=== PATIENT | female | born 1980 | race Caucasian/White ===

== ENCOUNTER 2024-01-03 11:40 | Emergency (ER) | payer BC, OTHER ==
--- NOTE | 2024-01-03 11:55 | ED ---
General Adult HPI - General Chief complaint: Chest Pain Stated complaint: chest pain Time Seen by Provider: 01/03/24 11:47 Source: patient, EMS, RN notes reviewed, old records reviewed Mode of arrival: EMS Limitations: no limitations - History of Present Illness Initial comments: 43-year-old female history of type 1 diabetes presenting for evaluation of lightheadedness, near syncope and chest discomfort. Symptoms began just prior to arrival. Patient was seated at work when she began feeling lightheaded like she was going to pass out. This was associated with nausea and diaphoresis. She had some central chest tightness which was initially left-sided and then became right-sided, this was a brief episode.. She denies chest pain at the time my evaluation. She has no prior history of CAD. - Related Data Home Medications Medication Instructions Recorded Confirmed INSULIN ASPART (NovoLOG) [NovoLOG] See Protocol SQ AC-TID 09/27/17 09/27/17 Ibuprofen [Motrin] 400 mg PO Q6HR PRN 09/27/17 09/27/17 Insulin Glargine [Lantus] 29 unit SQ HS 09/27/17 09/27/17 Levothyroxine Sodium [Synthroid] 175 mcg PO DAILY 09/27/17 09/27/17 Allergies Allergy/AdvReac Type Severity Reaction Status Date / Time nitrofurantoin Allergy Nausea & Verified 01/03/24 14:13 [From Macrobid] Vomiting Review of Systems ROS Statement: Those systems with pertinent positive or pertinent negative responses have been documented in the HPI. ROS Other: All systems not noted in ROS Statement are negative. Past Medical History Past Medical History: Diabetes Mellitus, Thyroid Disorder Additional Past Medical History / Comment(s): Type 1 DM, slight heart murmur History of Any Multi-Drug Resistant Organisms: None Reported Past Surgical History: Adenoidectomy, Cholecystectomy, Ear Surgery, Tonsillectomy, Tubal Ligation Past Psychological History: No Psychological Hx Reported Smoking Status: Never smoker Past Alcohol Use History: None Reported Past Drug Use History: None Reported General Exam Limitations: no limitations General appearance: alert, in no apparent distress Head exam: Present: atraumatic, normocephalic Eye exam: Present: normal appearance, PERRL ENT exam: Present: normal exam Neck exam: Present: normal inspection. Absent: tenderness, meningismus Respiratory exam: Present: normal lung sounds bilaterally. Absent: respiratory distress, wheezes Cardiovascular Exam: Present: regular rate, normal rhythm GI/Abdominal exam: Present: soft. Absent: distended, tenderness, guarding Extremities exam: Present: pedal edema Neurological exam: Present: alert, oriented X3, CN II-XII intact. Absent: motor sensory deficit Psychiatric exam: Present: normal affect, normal mood Skin exam: Present: warm, dry, intact Course Vital Signs 01/03/24 11:41 Temperature 97.6 F Pulse Rate 83 Respiratory 18 Rate Blood Pressure 134/80 O2 Sat by Pulse 97 Oximetry Medical Decision Making - Medical Decision Making Was pt. sent in by a medical professional or institution (, PA, LAND USE PLANNER, urgent care, hospital, or half-way...) When possible be specific @ -No Did you speak to anyone other than the patient for history (EMS, parent, family, police, friend...)? What history was obtained from this source @ -No Did you review nursing and triage notes (agree or disagree)? Why? @ -I reviewed and agree with nursing and triage notes Were old charts reviewed (outside hosp., previous admission, EMS record, old EKG, old radiological studies, urgent care reports/EKG's, half-way records)? Report findings @ -No old charts were reviewed Differential Diagnosis (chest pain, altered mental status, abdominal pain women, abdominal pain men, vaginal bleeding, weakness, fever, dyspnea, syncope, headache, dizziness, GI bleed, back pain, seizure, CVA, palpatations, mental health, musculoskeletal)? @ -Differential Syncope: Valvular disease, hypertrophic cardiomyopathy, pulmonary embolism, tamponade, tachycardia, bradycardia, ID, hypovolemia, hemorrhage, dissection, anemia, intracranial hemorrhage, seizure, hypoglycemia, carbon monoxide poisoning, this is not meant to be an all-inclusive list. EKG interpreted by me (3pts min.). @EKG: Sinus rhythm rate of 86, SD interval 153, QRS duration 98, QTc [address] segment elevation. X-rays interpreted by me (1pt min.). @ -[Chest x-ray negative for acute cardiopulmonary findings CT interpreted by me (1pt min.). @ -CT brain negative for intracranial hemorrhage or mass effect U/S interpreted by me (1pt. min.). @ -None done What testing was considered but not performed or refused? (CT, X-rays, U/S, labs)? Why? @ -None What meds were considered but not given or refused? Why? @ -None Did you discuss the management of the patient with other professionals (professionals i.e. , PA, LAND USE PLANNER, lab, RT, psych nurse, drug abuse social worker, production control manager, teacher, space operations officer, binder caser)? Give summary @ -No Was smoking cessation discussed for >3mins.? @ -No Was critical care preformed (if so, how long)? @ -No Were there social determinants of health that impacted care today? How? (Homelessness, low income, unemployed, alcoholism, drug addiction, transportation, low edu. Level, literacy, decrease access to med. care, penitentiary, rehab)? @ -No Was there de-escalation of care discussed even if they declined (Discuss DNR or withdrawal of care, Hospice)? DNR status @ -No What co-morbidities impacted this encounter? (DM, HTN, Smoking, COPD, CAD, Cancer, CVA, ARF, Chemo, Hep., AIDS, mental health diagnosis, sleep apnea, morbid obesity)? @ -Type 1 diabetes Was patient admitted / discharged? Hospital course, mention meds given and route, prescriptions, significant lab abnormalities, going to OR and other pertinent info. @ -43-year-old female with near syncopal episode, brief episode of chest dis comfort. EKG sinus rhythm without ST segment changes. Patient has normal laboratory testing with the exception of anemia, hemoglobin 8.6 with no old for comparison. She denies rectal bleeding, denies melena, denies heavy menstrual cycles. She states she has never been told she was anemic in the past. Workup is otherwise unremarkable. I suspect this is the cause of her symptoms. 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 Undiagnosed new problem with uncertain prognosis? @ -No Drug Therapy requiring intensive monitoring for toxicity (Heparin, Nitro, Insulin, Cardizem)? @ -No Were any procedures done? @ -No Diagnosis/symptom? @ -Anemia, near syncope Acute, or Chronic, or Acute on Chronic? @ -Acute Uncomplicated (without systemic symptoms) or Complicated (systemic symptoms)? @ -Default Side effects of treatment? @ -No Exacerbation, Progression, or Severe Exacerbation? @ -No Poses a threat to life or bodily function? How? (Chest pain, USA, ID, pneumonia, PE, COPD, DKA, ARF, appy, cholecystitis, CVA, Diverticulitis, Homicidal, Suicidal, threat to staff... and all critical care pts) @ -Low risk at this time - Lab Data Result diagrams: 01/03/24 11:55 01/03/24 11:55 Lab Results 01/03/24 01/03/24 01/03/24 Range/Units 11:55 11:55 11:55 WBC 8.2 (3.8-10.6) k/uL RBC 4.42 (3.80-5.40) m/uL Hgb 8.6 L (11.4-16.0) gm/dL Hct 28.6 L (34.0-46.0) % MCV 64.7 L (80.0-100.0) fL MCH 19.5 L (25.0-35.0) pg MCHC 30.2 L (31.0-37.0) g/dL RDW 16.6 H (11.5-15.5) % Plt Count 226 (150-450) k/uL MPV 8.0 Neutrophils % 69 % Lymphocytes % 22 % Monocytes % 4 % Eosinophils % 2 % Basophils % 0 % Neutrophils # 5.7 (1.3-7.7) k/uL Lymphocytes # 1.8 (1.0-4.8) k/uL Monocytes # 0.4 (0-1.0) k/uL Eosinophils # 0.2 (0-0.7) k/uL Basophils # 0.0 (0-0.2) k/uL Hypochromasia Marked Anisocytosis Slight Microcytosis Marked PT 10.1 (10.0-12.5) sec INR 0.9 (<1.2) APTT 21.9 L (22.0-30.0) sec Sodium 138 (137-145) mmol/L Potassium 4.0 (3.5-5.1) mmol/L Chloride 110 H (98-107) mmol/L Carbon Dioxide 22 (22-30) mmol/L Anion Gap 6 mmol/L BUN 9 (7-17) mg/dL Creatinine 0.50 L (0.52-1.04) mg/dL Est GFR (CKD-EPI)AfAm >90 (>60 ml/min/1.73 sqM) Est GFR (CKD-EPI)NonAf >90 (>60 ml/min/1.73 sqM) Glucose 156 H (74-99) mg/dL Calcium 8.7 (8.4-10.2) mg/dL Magnesium 1.8 (1.6-2.3) mg/dL Total Bilirubin 0.7 (0.2-1.3) mg/dL AST 18 (14-36) U/L ALT 14 (4-34) U/L Alkaline Phosphatase 81 (38-126) U/L Troponin I (0.000-0.034) ng/mL NT-Pro-B Natriuret Pep 90 pg/mL Total Protein 6.9 (6.3-8.2) g/dL Albumin 3.8 (3.5-5.0) g/dL Influenza Type A (PCR) (Not Detectd) Influenza Type B (PCR) (Not Detectd) RSV (PCR) (Not Detectd) SARS-CoV-2 (PCR) (Not Detectd) 01/03/24 01/03/24 Range/Units 11:55 13:15 WBC (3.8-10.6) k/uL RBC (3.80-5.40) m/uL Hgb (11.4-16.0) gm/dL Hct (34.0-46.0) % MCV (80.0-100.0) fL MCH (25.0-35.0) pg MCHC (31.0-37.0) g/dL RDW (11.5-15.5) % Plt Count (150-450) k/uL MPV Neutrophils % % Lymphocytes % % Monocytes % % Eosinophils % % Basophils % % Neutrophils # (1.3-7.7) k/uL Lymphocytes # (1.0-4.8) k/uL Monocytes # (0-1.0) k/uL Eosinophils # (0-0.7) k/uL Basophils # (0-0.2) k/uL Hypochromasia Anisocytosis Microcytosis PT (10.0-12.5) sec INR (<1.2) APTT (22.0-30.0) sec Sodium (137-145) mmol/L Potassium (3.5-5.1) mmol/L Chloride (98-107) mmol/L Carbon Dioxide (22-30) mmol/L Anion Gap mmol/L BUN (7-17) mg/dL Creatinine (0.52-1.04) mg/dL Est GFR (CKD-EPI)AfAm (>60 ml/min/1.73 sqM) Est GFR (CKD-EPI)NonAf (>60 ml/min/1.73 sqM) Glucose (74-99) mg/dL Calcium (8.4-10.2) mg/dL Magnesium (1.6-2.3) mg/dL Total Bilirubin (0.2-1.3) mg/dL AST (14-36) U/L ALT (4-34) U/L Alkaline Phosphatase (38-126) U/L Troponin I <0.012 (0.000-0.034) ng/mL NT-Pro-B Natriuret Pep pg/mL Total Protein (6.3-8.2) g/dL Albumin (3.5-5.0) g/dL Influenza Type A (PCR) Not Detected (Not Detectd) Influenza Type B (PCR) Not Detected (Not Detectd) RSV (PCR) Not Detected (Not Detectd) SARS-CoV-2 (PCR) Not Detected (Not Detectd) Disposition Clinical Impression: Near syncope, Anemia Disposition: HOME SELF-CARE Condition: Fair Instructions (If sedation given, give patient instructions): Anemia (ED), Near Syncope (ED) Additional Instructions: Please take oral iron supplement follow-up closely with your primary care provider. Please return with worsening or changing symptoms. Is patient prescribed a controlled substance at d/c from ED?: No Referrals: Britt Mazariegos DO [Primary Care Provider] - 1-2 days Time of Disposition: 14:16
[2024-01-03] MEDS: SODIUM CHLORIDE 0.9% 500 ML 500 ML IV ONE (12:00)
[2024-01-03 12:04] LABS: Anisocytosis Slight; Basophils % (A) 0 %; Eosinophils # (A) 0.2 k/uL (0-0.7); Eosinophils % (A) 2 %; HCT 28.6 % (34.0-46.0); HGB 8.6 gm/dL (11.4-16.0); Hypochromasia Marked; Lymphocytes # (A) 1.8 k/uL (1.0-4.8); Lymphocytes % (A) 22 %; MCH 19.5 pg (25.0-35.0); MCHC 30.2 g/dL (31.0-37.0); MCV 64.7 fL (80.0-100.0); Microcytosis Marked; Monocytes # (A) 0.4 k/uL (0-1.0); Monocytes % (A) 4 %; Neutrophils # (A) 5.7 k/uL (1.3-7.7); Neutrophils % (A) 69 %; Platelet Count 226 k/uL (150-450); RBC 4.42 m/uL (3.80-5.40); RDW 16.6 % (11.5-15.5); WBC 8.2 k/uL (3.8-10.6)
[2024-01-03 12:14] VITALS: TEMP 97.6
[2024-01-03 12:21] LABS: ALT 14 U/L (4-34); AST 18 U/L (14-36); African American GFR (CKD) >90 (>60 ml/min/1.73 sqM); Albumin 3.8 g/dL (3.5-5.0); Alkaline Phosphatase 81 U/L (38-126); Anion Gap 6 mmol/L; Blood Urea Nitrogen 9 mg/dL (7-17); Calcium 8.7 mg/dL (8.4-10.2); Carbon Dioxide 22 mmol/L (22-30); Chloride 110 mmol/L (98-107); Glucose 156 mg/dL (74-99); Magnesium 1.8 mg/dL (1.6-2.3); Non-African American GFR(CKD) >90 (>60 ml/min/1.73 sqM); Sodium 138 mmol/L (137-145); Total Bilirubin 0.7 mg/dL (0.2-1.3); Total Protein 6.9 g/dL (6.3-8.2)
[2024-01-03 12:30] LABS: NT-Pro-B-Type Natriuretic Pept 90 pg/mL
[2024-01-03 12:33] LABS: INR 0.9 (<1.2); Partial Thromboplastin Time 21.9 sec (22.0-30.0); Prothrombin Time 10.1 sec (10.0-12.5)
--- NOTE | 2024-01-03 13:00 | XR ---
EXAMINATION TYPE: XR chest 2V DATE OF EXAM: 01/03/2024 12:09 PM CLINICAL INDICATION:Female, 43 years old with history of Chest Pain; COMPARISON: Chest radiographs from 01/03/2024. TECHNIQUE: XR chest 2V Frontal and lateral views of the chest. FINDINGS: Lungs/Pleura: There is no evidence of pleural effusion, focal consolidation, or pneumothorax. Pulmonary vascularity: Unremarkable. Heart/mediastinum: Cardiomediastinal silhouette is unremarkable. Musculoskeletal: No acute osseous pathology. Other findings: None IMPRESSION: No acute cardiopulmonary disease/process.
--- NOTE | 2024-01-03 14:05 | CT ---
EXAMINATION TYPE: CT brain wo con DATE OF EXAM: 01/03/2024 COMPARISON: None HISTORY: RAZA, dizzy CT DLP: 1095.[address] of the brain was performed. The ventricles, basal cisterns and sulci overlying the cerebral convexities demonstrate a normal appe arance. There is no evidence for intracranial hemorrhage or sulcal effacement. No mass effects are seen. Osseous calvarium is intact. If symptoms persist consider MRI as clinically warranted. IMPRESSION: 1. No acute intracranial process is seen at this time.
[2024-01-03 15:43] VITALS: BP 127/90; PULSE 77; RESP 20
== END 2024-01-03 15:38 | disposition home or self-care (01) ==
LOC: EC 11:40
DX: D64.9 Anemia, unspecified (principal); R55 Syncope and collapse; E10.9 Type 1 diabetes mellitus without complications; E07.9 Disorder of thyroid, unspecified; Z79.890 Hormone replacement therapy; Z20.822 Contact with and (suspected) exposure to COVID-19; Z88.8 Allergy status to other drugs, medicaments and biological substances
CPT/HCPCS: 36415; 70450; 71046; 80053; 83735; 83880; 84484; 85025; 85610; 85730; 87636; 93005; 96360; 99285

== ENCOUNTER 2024-09-11 18:53 | Inpatient (IN) | payer BC ==
--- NOTE | 2024-09-11 19:06 | ED ---
Recheck HPI - General Chief Complaint: Nausea/Vomiting/Diarrhea Stated Complaint: weakness Time Seen by Provider: 09/11/24 18:55 Source: EMS, RN notes reviewed, old records reviewed Mode of arrival: EMS Limitations: no limitations - History of Present Illness Initial Comments: This is a 44-year-old female to the ER for evaluation of significantly elevated blood sugar and DKA Complaint: abnormal lab (DKA) -: days(s) Returns Today for: Called Because of Abnormal Lab/Test Context: planned re-check, called for abnormal lab result Associated Symptoms: none - Related Data Home Medications Medication Instructions Recorded Confirmed Diphenoxylate HCl/Atropine 2 tab PO BID 01/03/24 09/11/24 [Lomotil 2.5-0.025 mg Tablet] Famotidine [Pepcid] 20 mg PO HS 01/03/24 09/11/24 Insulin Aspart [NovoLOG Flexpen] See Protocol SQ AC-TID 01/03/24 09/11/24 Insulin Degludec [Tresiba 34 units SQ HS 01/03/24 09/11/24 Flextouch U-100 Pen] Levothyroxine Sodium [Synthroid] 100 mcg PO [id number] 01/03/24 09/11/24 Loperamide [Imodium] 4 mg PO BID 01/03/24 09/11/24 Omeprazole [PriLOSEC] 20 mg PO AC-BID 01/03/24 09/11/24 Levothyroxine Sodium 150 mcg PO PERSAUD 09/11/24 09/11/24 Allergies Allergy/AdvReac Type Severity Reaction Status Date / Time nitrofurantoin AdvReac Nausea & Verified 09/11/24 20:03 [From Macrobid] Vomiting Review of Systems ROS Statement: Those systems with pertinent positive or pertinent negative responses have been documented in the HPI. ROS Other: All systems not noted in ROS Statement are negative. Past Medical History Past Medical History: Diabetes Mellitus, Thyroid Disorder Additional Past Medical History / Comment(s): Type 1 DM, slight heart murmur History of Any Multi-Drug Resistant Organisms: None Reported Past Surgical History: Adenoidectomy, Cholecystectomy, Ear Surgery, Tonsillectomy, Tubal Ligation Past Psychological History: No Psychological Hx Reported Smoking Status: Never smoker Past Alcohol Use History: None Reported Past Drug Use History: None Reported General Exam Limitations: no limitations General appearance: alert, in no apparent distress, anxious Head exam: Present: atraumatic, normocephalic, normal inspection Eye exam: Present: normal appearance, PERRL, EOMI. Absent: scleral icterus, conjunctival injection, periorbital swelling ENT exam: Present: normal exam, mucous membranes moist Neck exam: Present: normal inspection. Absent: tenderness, meningismus, lymphadenopathy Respiratory exam: Present: normal lung sounds bilaterally. Absent: respiratory distress, wheezes, rales, rhonchi, stridor Cardiovascular Exam: Present: regular rate, normal rhythm, normal heart sounds. Absent: systolic murmur, diastolic murmur, rubs, gallop, clicks GI/Abdominal exam: Present: soft, normal bowel sounds. Absent: distended, tenderness, guarding, rebound, rigid Extremities exam: Present: normal inspection, full ROM, normal capillary refill. Absent: tenderness, pedal edema, joint swelling, calf tenderness Back exam: Present: normal inspection Neurological exam: Present: alert, oriented X3, CN II-XII intact Psychiatric exam: Present: normal affect, normal mood Skin exam: Present: warm, dry, intact, normal color. Absent: rash Course Vital Signs 09/11/24 09/11/24 09/11/24 18:55 20:00 20:55 Temperature 98.4 F Pulse Rate 104 H 103 H 96 Respiratory 18 20 20 Rate Blood Pressure 148/94 147/95 115/71 O2 Sat by Pulse 100 100 98 Oximetry - Reevaluation(s) Reevaluation #1: 09/11/24 19:04 Medical record is reviewed Reevaluation #2: 09/11/24 19:04 Patient symptoms are unchanged Reevaluation #3: 09/11/24 19:04 Patient informed of results and questions answered Reevaluation #4: Was pt. sent in by a medical professional or institution (, PA, BRAND MGR, urgent care, hospital, or fci...) When possible be specific @ -no Did you speak to anyone other than the patient for history (EMS, parent, family, police, friend...)? What history was obtained from this source @ -no Did you review nursing and triage notes (agree or disagree)? Why? @ -agree Are old charts reviewed (outside hosp., previous admission, EMS record, old EKG, old radiological studies, urgent care reports/EKG's, fci records)? Report findings @ -yes Differential Diagnosis (chest pain, altered mental status, abdominal pain women, abdominal pain men, vaginal bleeding, weakness, fever, dyspnea, syncope, headache, dizziness, GI bleed, back pain, seizure, CVA, palpatations, mental health, musculoskeletal)? @ -prior EKG interpreted by me (3pts min.). @ -yes X-rays interpreted by me (1pt min.). @ -no CT interpreted by me (1pt min.). @ -no U/S interpreted by me (1pt. min.). @ -no What testing was considered but not performed or refused? (CT, X-rays, U/S, labs)? Why? @ -none What meds were considered but not given or refused? Why? @ -none Did you discuss the management of the patient with other professionals (professionals i.e. , PA, BRAND MGR, lab, RT, psych nurse, social scientist, food counselor, teacher, air intelligence officer, insurance case manager)? Give summary @ -no Was smoking cessation discussed for >3mins.? @ -no Was critical care preformed (if so, how long)? @ -yes31 Were there social determinants of health that impacted care today? How? (Homelessness, low income, unemployed, alcoholism, drug addiction, transportation, low edu. Level, literacy, decrease access to med. care, senior care, rehab)? @ -none Was there de-escalation of care discussed even if they declined (Discuss DNR or withdrawal of care, Hospice)? DNR status @ -no What co-morbidities impacted this encounter? (DM, HTN, Smoking, COPD, CAD, Cancer, CVA, ARF, Chemo, Hep., AIDS, mental health diagnosis, sleep apnea, morbid obesity)? @ -none Was patient admitted / discharged? Hospital course, mention meds given and route, prescriptions, significant lab abnormalities, going to OR and other per tinent info. @ - 44 female will be admitted for DKA, patient will admit for significant monitoring and close monitoring and treatment for DKA Admitted Undiagnosed new problem with uncertain prognosis? @ -no Drug Therapy requiring intensive monitoring for toxicity (Heparin, Nitro, Insulin, Cardizem)? @ -no Were any procedures done? @ -no Diagnosis/symptom? @ -DKA Acute, or Chronic, or Acute on Chronic? @ -Acute Uncomplicated (without systemic symptoms) or Complicated (systemic symptoms)? @ -Complicated Side effects of treatment? @ -no Exacerbation, Progression, or Severe Exacerbation? @ -exacerbation Poses a threat to life or bodily function? How? (Chest pain, USA, CT, pneumonia, PE, COPD, DKA, ARF, appy, cholecystitis, CVA, Diverticulitis, Homicidal, Suicidal, threat to staff... and all critical care pts) @ -yes DKA DKA Reevaluation #5: Differential Weakness: Hypoglycemia, shock, sepsis, hyponatremia, anemia, infection, CT, ETOH, adverse medicine reaction, overdose, stroke, this is not meant to be an all-inclusive list. - Consultations Consultation #1: Spoke with admitting physicians who agreed to admit this patient Medical Decision Making - Medical Decision Making 44 female will be admitted for DKA, patient will admit for significant monitoring and close monitoring and treatment for DKA - Lab Data Result diagrams: 09/13/24 07:59 - EKG Data -: EKG Interpreted by Me (EKG is sinus tachycardia 104 OK 170 QRS 77 QTc 418) Critical Care Time Critical Care Time: Yes Total Critical Care Time: 31 Disposition Clinical Impression: Dehydration, DKA (diabetic ketoacidosis) Disposition: ADMITTED IP TO THIS HOSP Condition: Serious Is patient prescribed a controlled substance at d/c from ED?: No Time of Disposition: 19:00
[2024-09-11 19:12] LABS: Glucose,Whole Blood 312 mg/dL (70-110)
[2024-09-11] MEDS: INSULIN REGULAR 100 UNIT in SODIUM CHLORIDE 0.9% 100 ML IV SCH (19:46)
[2024-09-11 19:50] LABS: Glucose,Whole Blood 280 mg/dL (70-110)
[2024-09-11] MEDS: SODIUM CHLORIDE 0.9% 1,000 ML IV ONE (19:57)
[2024-09-11] MEDS: SODIUM CHLORIDE 0.9% 1,000 ML IV SCH (19:57)
[2024-09-11 20:55] LABS: Glucose,Whole Blood 223 mg/dL (70-110)
[2024-09-11] MEDS: DEXTROSE 5%-0.45% NACL 1,000 ML IV SCH (21:02)
[2024-09-11 22:03] LABS: Glucose,Whole Blood 162 mg/dL (70-110)
[2024-09-11] MEDS: ONDANSETRON 4 MG/2 ML VIAL IVP PRN (22:08)
[2024-09-11 22:22] LABS: African American GFR (CKD) >90 (>60 ml/min/1.73 sqM); Anion Gap 21 mmol/L; Blood Urea Nitrogen 13 mg/dL (7-17); Carbon Dioxide 12 mmol/L (22-30); Chloride 113 mmol/L (98-107); Glucose 196 mg/dL (74-99); Non-African American GFR(CKD) >90 (>60 ml/min/1.73 sqM); Potassium 3.5 mmol/L (3.5-5.1); Sodium 146 mmol/L (137-145)
[2024-09-11 23:08] LABS: Glucose,Whole Blood 118 mg/dL (70-110)
[2024-09-12 00:02] LABS: Glucose,Whole Blood 91 mg/dL (70-110)
[2024-09-12 01:10] LABS: Glucose,Whole Blood 91 mg/dL (70-110)
[2024-09-12 01:44] LABS: Glucose,Whole Blood 95 mg/dL (70-110)
[2024-09-12 02:14] LABS: Glucose,Whole Blood 108 mg/dL (70-110)
[2024-09-12 02:56] LABS: African American GFR (CKD) >90 (>60 ml/min/1.73 sqM); Anion Gap 13 mmol/L; Blood Urea Nitrogen 13 mg/dL (7-17); Carbon Dioxide 15 mmol/L (22-30); Chloride 114 mmol/L (98-107); Glucose 128 mg/dL (74-99); Non-African American GFR(CKD) >90 (>60 ml/min/1.73 sqM); Potassium 3.9 mmol/L (3.5-5.1); Sodium 142 mmol/L (137-145)
[2024-09-12 03:20] LABS: Glucose,Whole Blood 146 mg/dL (70-110)
[2024-09-12 04:14] LABS: Glucose,Whole Blood 138 mg/dL (70-110)
[2024-09-12 05:05] LABS: Glucose,Whole Blood 152 mg/dL (70-110)
[2024-09-12 06:09] LABS: Glucose,Whole Blood 190 mg/dL (70-110)
[2024-09-12] MEDS: PANTOPRAZOLE 40 MG TABLET PO SCH (06:40)
[2024-09-12] MEDS: LEVOTHYROXINE 100 MCG TAB PO SCH (06:40)
[2024-09-12 07:06] LABS: Glucose,Whole Blood 172 mg/dL (70-110)
[2024-09-12 08:10] LABS: Glucose,Whole Blood 174 mg/dL (70-110)
[2024-09-12 09:29] LABS: Glucose,Whole Blood 182 mg/dL (70-110)
[2024-09-12 10:52] LABS: Glucose,Whole Blood 175 mg/dL (70-110)
[2024-09-12] MEDS: DIPHENOX-ATROP 2.5-0.025 MG 1 EACH TAB PO SCH (11:01)
[2024-09-12] MEDS: LOPERAMIDE 2 MG CAP PO SCH (11:02)
[2024-09-12] MEDS: ACETAMINOPHEN TAB 325 MG TAB PO PRN (11:27)
[2024-09-12] MEDS: ENOXAPARIN 40 MG/0.4 ML SYRINGE SQ SCH (11:27)
[2024-09-12 12:22] LABS: Glucose,Whole Blood 148 mg/dL (70-110)
[2024-09-12 13:01] LABS: Glucose,Whole Blood 144 mg/dL (70-110)
--- NOTE | 2024-09-12 13:32 | P.HPIM ---
History of Present Illness H&P Date: 09/12/24 Chief Complaint: Nausea vomiting This is a pleasant 44-year-old patient who follows with Britt Mazariegos. About 10 years ago patient diagnosed with type 1 diabetes. Takes Tresiba 34 units at night at home. Including sliding scale. For about 3 to 4 days both patient and her son started feeling unwell. Decreased appetite. Nausea. Yesterday started vomiting. She did have a bowel movement yesterday. Denies any urinary symptoms. Has some clear phlegm. Patient mated with diabetic ketoacidosis. Started insulin drip. This morning patient remains on IV fluids. She says she feels like "crap". Still having nausea. Only drinking some water.. Some abdominal discomfort Review of systems: GEN.: Tired EYES: None HEENT: None NECK: None RESPIRATORY: None CARDIOVASCULAR: None GASTROINTESTINAL: [As above GENITOURINARY: None MUSCULOSKELETAL: None LYMPHATICS: None HEMATOLOGICAL: None PSYCHIATRY: Bit anxious NEUROLOGICAL: None Social history: Works as a pharmacy consultant. No smoking alcohol. Son lives with her. Physical examination: VITAL SIGNS: 98.4, 104, 18, 148 x 94, 100% room air upon presentation GENERAL: BMI 26.4, laying bed awake tired appearing. EYES: Pupils equal. Conjunctiva miguel l. HEENT: External appearance of nose and ears normal, oral cavity grossly normal. NECK: JVD not raised; masses not palpable. HEART: First and second heart sounds are normal; no edema. LUNGS: Respiratory rate normal; clear to auscultation. ABDOMEN: Soft, nontender, liver spleen not palpable, no masses palpable. PSYCH: [Alert and oriented x3; mood and affect tired appearing MUSCULOSKELETAL:No Clubbing/cyanosis;muscles-grossly intact NEUROLOGICAL: Cranial nerves grossly intact; no facial asymmetry, power and sensation grossly intact. LYMPHATICS: No lymph nodes palpable in the axilla and neck INVESTIGATIONS, reviewed in the clinical context: September 12, 2024: Sodium 142 potassium 3.9 bicarb 15 creatinine 0.58 September 11: Sodium 146 potassium 3.5 bicarb 12 creatinine 0.69 EKG tracing personally reviewed by me-sinus tachycardia Assessment plan: -Diabetic ketoacidosis, likely precipitated by a viral infection upper respite tract type. Insulin drip. IV fluids. Patient does not have any appetite right now. Will try a soft diet. -Diabetes mellitus type 1 diagnosed about 10 years ago. Does take both long- acting and short acting insulin -GERD Prilosec -Hypothyroid Synthroid Care was discussed with the patient. Questions answered. Subcu Lovenox. Past Medical History Past Medical History: Diabetes Mellitus, Thyroid Disorder Additional Past Medical History / Comment(s): Type 1 DM, slight heart murmur History of Any Multi-Drug Resistant Organisms: None Reported Past Surgical History: Adenoidectomy, Cholecystectomy, Ear Surgery, Tonsillectomy, Tubal Ligation Past Anesthesia/Blood Transfusion Reactions: No Reported Reaction Past Psychological History: No Psychological Hx Reported Smoking Status: Never smoker Past Alcohol Use History: None Reported Past Drug Use History: None Reported Medications and Allergies Home Medications Medication Instructions Recorded Confirmed Type Diphenoxylate HCl/Atropine 2 tab PO BID 01/03/24 09/11/24 History [Lomotil 2.5-0.025 mg Tablet] Famotidine [Pepcid] 20 mg PO HS 01/03/24 09/11/24 History Insulin Aspart [NovoLOG Flexpen] See Protocol SQ AC-TID 01/03/24 09/11/24 H istory Insulin Degludec [Tresiba 34 units SQ HS 01/03/24 09/11/24 History Flextouch U-100 Pen] Levothyroxine Sodium [Synthroid] 100 mcg PO MOTUWETHFRSA 01/03/24 09/11/24 History Loperamide [Imodium] 4 mg PO BID 01/03/24 09/11/24 History Omeprazole [PriLOSEC] 20 mg PO AC-BID 01/03/24 09/11/24 History Levothyroxine Sodium 150 mcg PO PERSAUD 09/11/24 09/11/24 History Allergies Allergy/AdvReac Type Severity Reaction Status Date / Time nitrofurantoin AdvReac Nausea & Verified 09/11/24 20:03 [From Macrobid] Vomiting Physical Exam Vitals: Vital Signs Temp Pulse Pulse Resp BP BP Pulse Ox 09/12/24 08:00 98.6 F 100 12 107/75 99 09/12/24 03:30 102 H 16 100/64 99 09/11/24 23:15 115 H 16 93/62 100 09/11/24 21:30 97.0 F L 112 H 16 120/69 100 09/11/24 20:55 96 20 115/71 98 09/11/24 20:00 103 H 20 147/95 100 09/11/24 18:55 98.4 F 104 H 18 148/94 100 Intake and Output 09/11/24 09/12/24 09/12/24 22:59 06:59 14:59 Intake Total 29.460 Balance 29.460 Intake: Intake, IV Titration 29.460 Amount Insulin Regular 100 unit 29.460 In Sodium Chloride 0.9% 100 ml @ 0.1 UNITS/KG/HR 7.193 mls/hr IV .Q14H3M [facility] Rx#:[id number] Other: Voiding Method Toilet Toilet Weight 71.214 kg 67.5 kg Results CBC & Chem 7: 09/12/24 02:33 Labs: Abnormal Lab Results - Last 24 Hours (Table) 09/11/24 09/11/24 09/11/24 Range/Units 19:09 19:45 20:53 Sodium (137-145) mmol/L Chloride (98-107) mmol/L Carbon Dioxide (22-30) mmol/L Glucose (74-99) mg/dL POC Glucose (mg/dL) 312 H 280 H 223 H (70-110) mg/dL 09/11/24 09/11/24 09/11/24 Range/Units 21:43 22:01 23:07 Sodium 146 H (137-145) mmol/L Chloride 113 H (98-107) mmol/L Carbon Dioxide 12 L (22-30) mmol/L Glucose 196 H (74-99) mg/dL POC Glucose (mg/dL) 162 H 118 H (70-110) mg/dL 09/12/24 09/12/24 09/12/24 Range/Units 02:33 03:18 04:12 Sodium (137-145) mmol/L Chloride 114 H (98-107) mmol/L Carbon Dioxide 15 L (22-30) mmol/L Glucose 128 H (74-99) mg/dL POC Glucose (mg/dL) 146 H 138 H (70-110) mg/dL 09/12/24 09/12/24 09/12/24 Range/Units 05:03 06:08 07:04 Sodium (137-145) mmol/L Chloride (98-107) mmol/L Carbon Dioxide (22-30) mmol/L Glucose (74-99) mg/dL POC Glucose (mg/dL) 152 H 190 H 172 H (70-110) mg/dL 09/12/24 09/12/24 Range/Units 08:01 09:27 Sodium (137-145) mmol/L Chloride (98-107) mmol/L Carbon Dioxide (22-30) mmol/L Glucose (74-99) mg/dL POC Glucose (mg/dL) 174 H 182 H (70-110) mg/dL Thrombosis Risk Factor Assmnt - Choose All That Apply Any of the Below Risk Factors Present?: Yes Each Factor Represents 1 point: Age 41-60 years, Swollen legs (current) Other Risk Factors: No Other congenital or acquired thrombophilia - If yes, enter type in comment: No Thrombosis Risk Factor Assessment Total Risk Factor Score: 2 Thrombosis Risk Factor Assessment Level: Low Risk
[2024-09-12 14:10] LABS: Glucose,Whole Blood 139 mg/dL (70-110)
[2024-09-12 14:27] VITALS: BMI 26.3
[2024-09-12 15:15] LABS: Glucose,Whole Blood 159 mg/dL (70-110)
[2024-09-12 16:03] LABS: Glucose,Whole Blood 182 mg/dL (70-110)
[2024-09-12 16:57] LABS: Glucose,Whole Blood 210 mg/dL (70-110)
[2024-09-12 18:05] LABS: Glucose,Whole Blood 230 mg/dL (70-110)
[2024-09-12 19:40] LABS: Glucose,Whole Blood 285 mg/dL (70-110)
[2024-09-12 20:34] LABS: Glucose,Whole Blood 326 mg/dL (70-110)
[2024-09-12] MEDS: FAMOTIDINE 20 MG TAB PO SCH (20:39)
[2024-09-12] MEDS: INSULIN DETEMIR (LEVEMIR) 100 UNIT/ML SYR SQ SCH (21:00)
[2024-09-12 21:31] LABS: Glucose,Whole Blood 277 mg/dL (70-110)
[2024-09-12] MEDS: INSULIN ASPART (NovoLOG) 100 UNIT/ML VIAL SQ SCH (21:32)
[2024-09-13 01:59] LABS: Glucose,Whole Blood 66 mg/dL (70-110)
[2024-09-13 02:18] LABS: Glucose,Whole Blood 59 mg/dL (70-110)
[2024-09-13] MEDS: DEXTROSE 50% SYRINGE 50 ML IVP STA (02:18)
[2024-09-13 02:41] LABS: Glucose,Whole Blood 125 mg/dL (70-110)
[2024-09-13 04:06] LABS: Glucose,Whole Blood 87 mg/dL (70-110)
[2024-09-13 06:02] LABS: Glucose,Whole Blood 75 mg/dL (70-110)
[2024-09-13 07:16] LABS: Glucose,Whole Blood 58 mg/dL (70-110)
[2024-09-13 07:41] LABS: Glucose,Whole Blood 149 mg/dL (70-110)
[2024-09-13 08:28] LABS: ALT 10 U/L (4-34); AST 14 U/L (14-36); African American GFR (CKD) >90 (>60 ml/min/1.73 sqM); Albumin 3.1 g/dL (3.5-5.0); Alkaline Phosphatase 63 U/L (38-126); Anion Gap 8 mmol/L; Blood Urea Nitrogen 5 mg/dL (7-17); Calcium 8.6 mg/dL (8.4-10.2); Carbon Dioxide 21 mmol/L (22-30); Chloride 107 mmol/L (98-107); Glucose 150 mg/dL (74-99); Non-African American GFR(CKD) >90 (>60 ml/min/1.73 sqM); Potassium 3.2 mmol/L (3.5-5.1); Sodium 136 mmol/L (137-145); Total Bilirubin 0.5 mg/dL (0.2-1.3); Total Protein 5.8 g/dL (6.3-8.2)
[2024-09-13 11:31] LABS: Glucose,Whole Blood 111 mg/dL (70-110)
[2024-09-13] MEDS: METOCLOPRAMIDE 10 MG TAB PO SCH (11:37)
[2024-09-13] MEDS: POTASSIUM CHLORIDE 10 MEQ in WATER FOR INJECTION 1 100ML.BAG IVPB SCH (15:30)
[2024-09-13 16:11] LABS: Glucose,Whole Blood 202 mg/dL (70-110)
--- NOTE | 2024-09-13 16:24 | P.PN ---
Progress Note - Text Progress Note Date: 09/13/24 Chief Complaint: Nausea vomiting This is a pleasant 44-year-old patient who follows with Britt Mazariegos. About 10 years ago patient diagnosed with type 1 diabetes. Takes Tresiba 34 units at night at home. Including sliding scale. For about 3 to 4 days both patient and her son started feeling unwell. Decreased appetite. Nausea. Yesterday started vomiting. She did have a bowel movement yesterday. Denies any urinary symptoms. Has some clear phlegm. Patient mated with diabetic ketoacidosis. Started insulin drip. This morning patient remains on IV fluids. She says she feels like "crap". Still having nausea. Only drinking some water.. Some abdominal discomfort September 13: Patient was transitioned to Levemir 28 units last night. Normally she takes long-acting 34 units. Still having nausea today. Decreased oral intake. She did become a bit hypoglycemic. Has been drinking a bit of water. Told the patient to actually eat a diet as opposed to just water. Still having nausea. Reglan added. Increase activity. Patient did take a shower today. Active Medications Acetaminophen (Acetaminophen Tab 325 Mg Tab) 650 mg PO Q6HR PRN PRN Reason: Fever and/ or Pain Last Admin: 09/12/24 11:27 Dose: 650 mg Diphenoxylate HCl/Atropine (Diphenox-Atrop 2.5-0.025 Mg 1 Each Tab) 2 each PO BID [facility] Last Admin: 09/13/24 09:03 Dose: Not Given Enoxaparin Sodium (Enoxaparin 40 Mg/0.4 Ml Syringe) 40 mg SQ DAILY [facility] Last Admin: 09/13/24 09:56 Dose: 40 mg Famotidine (Famotidine 20 Mg Tab) 20 mg PO HS [facility] Last Admin: 09/12/24 20:39 Dose: Not Given Sodium Chloride (Saline 0.9%) 1,000 mls @ 500 mls/hr IV .Q2H ONE Last Admin: 09/11/24 19:57 Dose: Not Given Dextrose/Sodium Chloride (Dextrose 5%-1/2ns Iv Soln) 1,000 mls @ 125 mls/hr IV .Q8H [facility] Last Admin: 09/13/24 09:56 Dose: 125 mls/hr Potassium Chloride 10 meq/ IV (Solution) 100 mls @ 100 mls/hr IVPB Q1HR [facility] Stop: 09/13/24 16:59 Last Admin: 09/13/24 15:30 Dose: 100 mls/hr Insulin Aspart (Insulin Aspart (Novolog) 100 Unit/Ml Vial) 0 unit SQ [id number] [facility]; Protocol Last Admin: 09/13/24 13:33 Dose: Not Given Insulin Detemir (Insulin Detemir (Levemir) 100 Unit/Ml Syr) 28 unit SQ HS [facility] Last Admin: 09/12/24 21:00 Dose: 28 unit Levothyroxine Sodium (Levothyroxine 100 Mcg Tab) 150 mcg PO PERSAUD [facility] Levothyroxine Sodium (Levothyroxine 100 Mcg Tab) 100 mcg PO MOTUWETHFRSA [facility] Last Admin: 09/13/24 05:58 Dose: 100 mcg Loperamide HCl (Loperamide 2 Mg Cap) 4 mg PO BID [facility] Last Admin: 09/13/24 09:03 Dose: Not Given Metoclopramide HCl (Metoclopramide 10 Mg Tab) 10 mg PO AC-TID [facility] Last Admin: 09/13/24 11:37 Dose: 10 mg Ondansetron HCl (Ondansetron 4 Mg/2 Ml Vial) 4 mg IVP Q6HR PRN PRN Reason: Nausea And Vomiting Last Admin: 09/13/24 09:56 Dose: 4 mg Pantoprazole Sodium (Pantoprazole 40 Mg Tablet) 40 mg PO DAILY@0730 [facility] Last Admin: 09/13/24 05:58 Dose: 40 mg 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 Son lives with her. Physical examination: VITAL SIGNS: 98, 88, 16, 144/77, 99% room air GENERAL: BMI 26.4, sitting at the edge of the bed, a bit tired EYES: Pupils equal. Conjunctiva miguel l. HEENT: External appearance of nose and ears normal, oral cavity grossly normal. NECK: JVD not raised; masses not palpable. HEART: First and second heart sounds are normal; no edema. LUNGS: Respiratory rate normal; clear to auscultation. ABDOMEN: Soft, nontender, liver spleen not palpable, no masses palpable. PSYCH: [Alert and oriented x3; mood and affect tired appearing MUSCULOSKELETAL:No Clubbing/cyanosis;muscles-grossly intact INVESTIGATIONS, reviewed in the clinical context: September 13: Sodium 136 potassium 3.2 creatinine 0.57 September 12, 2024: Sodium 142 potassium 3.9 bicarb 15 creatinine 0.58 September 11: Sodium 146 potassium 3.5 bicarb 12 creatinine 0.69 EKG tracing personally reviewed by me-sinus tachycardia Assessment plan: -Diabetic ketoacidosis, likely precipitated by a viral infection upper respiratory infection: Improved. Insulin drip. IV fluids. -Diabetes mellitus type 1 diagnosed about 10 years ago. Does take both long- acting and short acting insulin Resumed on Levemir 28 units SQ at bedtime -Persistent nausea some vomiting Add Reglan. Diet discussed with the patient. -GERD Prilosec -Hypothyroid Synthroid Patient is rather feeling a bit tired. Nausea. Does not feel well. Add Reglan. Diet discussed. Watch for another 24 hours. Past Medical History Past Medical History: Diabetes Mellitus, Thyroid Disorder Additional Past Medical History / Comment(s): Type 1 DM, slight heart murmur History of Any Multi-Drug Resistant Organisms: None Reported Past Surgical History: Adenoidectomy, Cholecystectomy, Ear Surgery, Tonsillectomy, Tubal Ligation Past Anesthesia/Blood Transfusion Reactions: No Reported Reaction Past Psychological History: No Psychological Hx Reported Smoking Status: Never smoker Past Alcohol Use History: None Reported Past Drug Use History: None Reported
[2024-09-13] MEDS: POTASSIUM BICARBONATE/CIT AC 20 MEQ TABLET.EFF PO ONE (18:13)
[2024-09-13 20:07] LABS: Glucose,Whole Blood 331 mg/dL (70-110)
[2024-09-14 02:03] LABS: Glucose,Whole Blood 153 mg/dL (70-110)
[2024-09-14 03:32] VITALS: TEMP 98.5
[2024-09-14 06:06] LABS: Glucose,Whole Blood 59 mg/dL (70-110)
[2024-09-14 06:23] LABS: Glucose,Whole Blood 67 mg/dL (70-110)
[2024-09-14 06:39] LABS: Glucose,Whole Blood 81 mg/dL (70-110)
[2024-09-14 11:29] LABS: Glucose,Whole Blood 158 mg/dL (70-110)
[2024-09-14 13:11] VITALS: BP 111/52; PULSE 94; RESP 18
--- NOTE | 2024-09-14 20:44 | P.DS ---
Providers Date of admission: 09/11/24 19:03 Expected date of discharge: 09/14/24 Attending physician: Suraj Batista Primary care physician: Britt Mazariegos [facility] Course: Chief Complaint: Nausea vomiting This is a pleasant 44-year-old patient who follows with Britt Mazariegos. About 10 years ago patient diagnosed with type 1 diabetes. Takes Tresiba 34 units at night at home. Including sliding scale. For about 3 to 4 days both patient and her son started feeling unwell. Decreased appetite. Nausea. Yesterday started vomiting. She did have a bowel movement yesterday. Denies any urinary symptoms. Has some clear phlegm. Patient mated with diabetic ketoacidosis. Started insulin drip. This morning patient remains on IV fluids. She says she feels like "crap". Still having nausea. Only drinking some water.. Some abdominal discomfort September 13: Patient was transitioned to Levemir 28 units last night. Normally she takes long-acting 34 units. Still having nausea today. Decreased oral intake. She did become a bit hypoglycemic. Has been drinking a bit of water. Told the patient to actually eat a diet as opposed to just water. Still having nausea. Reglan added. Increase activity. Patient did take a shower today. September 14: Doing better. Eating better. No nausea vomiting. Patient follow- up with her senior visual designer outpatient. Told to cut back on her Tresiba to 28 units for now. 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 Son lives with her. Physical examination: VITAL SIGNS: 98.5, 94, 18, 111 x 52, 99% room air GENERAL: BMI 26.4, comfortable eating EYES: Pupils equal. Conjunctiva miguel l. HEENT: External appearance of nose and ears normal, oral cavity grossly normal. NECK: JVD not raised; masses not palpable. HEART: First and second heart sounds are normal; no edema. LUNGS: Respiratory rate normal; clear to auscultation. ABDOMEN: Soft, nontender, liver spleen not palpable, no masses palpable. PSYCH: [Alert and oriented x3; mood and affect tired appearing MUSCULOSKELETAL:No Clubbing/cyanosis;muscles-grossly intact INVESTIGATIONS, reviewed in the clinical context: September 13: Sodium 136 potassium 3.2 creatinine 0.57 September 12, 2024: Sodium 142 potassium 3.9 bicarb 15 creatinine 0.58 September 11: Sodium 146 potassium 3.5 bicarb 12 creatinine 0.69 EKG tracing personally reviewed by me-sinus tachycardia Assessment plan: -Diabetic ketoacidosis, likely precipitated by a viral infection upper respiratory infection: Resolved Insulin drip. IV fluids. -Diabetes mellitus type 1 diagnosed about 10 years ago. Does take both long- acting and short acting insulin DC on Tresiba 28 units SQ at bedtime Follow-up with her senior visual designer -Persistent nausea some vomiting: Resolved -GERD Prilosec -Hypothyroid Synthroid Position: Home Past Medical History Past Medical History: Diabetes Mellitus, Thyroid Disorder Additional Past Medical History / Comment(s): Type 1 DM, slight heart murmur History of Any Multi-Drug Resistant Organisms: None Reported Past Surgical History: Adenoidectomy, Cholecystectomy, Ear Surgery, Tonsillectomy, Tubal Ligation Past Anesthesia/Blood Transfusion Reactions: No Reported Reaction Past Psychological History: No Psychological Hx Reported Smoking Status: Never smoker Past Alcohol Use History: None Reported Past Drug Use History: None Reported Patient Condition at Discharge: Serious Plan - Discharge Summary Discharge Rx Participant: No New Discharge Prescriptions: Continue Omeprazole [PriLOSEC] 20 mg PO AC-BID Loperamide [Imodium] 4 mg PO BID Levothyroxine Sodium [Synthroid] 100 mcg PO MOTUWETHFRSA Insulin Aspart [NovoLOG Flexpen] See Protocol SQ AC-TID Famotidine [Pepcid] 20 mg PO HS Diphenoxylate HCl/Atropine [Lomotil 2.5-0.025 mg Tablet] 2 tab PO BID Levothyroxine Sodium 150 mcg PO PERSAUD Insulin Degludec [Tresiba Flextouch U-100 Pen] 34 units SQ HS Discharge Medication List Diphenoxylate HCl/Atropine [Lomotil 2.5-0.025 mg Tablet] 2 tab PO BID 01/03/24 [History] Famotidine [Pepcid] 20 mg PO HS 01/03/24 [History] Insulin Aspart [NovoLOG Flexpen] See Protocol SQ AC-TID 01/03/24 [History] Insulin Degludec [Tresiba Flextouch U-100 Pen] 34 units SQ HS 01/03/24 [History] Levothyroxine Sodium [Synthroid] 100 mcg PO MOTUWETHFRSA 01/03/24 [History] Loperamide [Imodium] 4 mg PO BID 01/03/24 [History] Omeprazole [PriLOSEC] 20 mg PO AC-BID 01/03/24 [History] Levothyroxine Sodium 150 mcg PO PERSAUD 09/11/24 [History] Follow up Appointment(s)/Referral(s): Britt Mazariegos DO [Primary Care Provider] - 1 Week (Please call to schedule follow up appoitment) Activity/Diet/Wound Care/Special Instructions: f/u with own senior visual designer Discharge/Stand Alone Forms: PH Area PCPs Discharge Disposition: HOME SELF-CARE
[2024-09-15] MEDS ORDERED: LEVOTHYROXINE 100 MCG TAB PO SCH (06:00)
== END 2024-09-14 13:47 | disposition home or self-care (01) | DRG 640 ==
LOC: EC 18:53 → 3SCARD 19:03
PROVIDERS: ADMIT Hospitalist; ATTEND Hospitalist
DX: E86.0 Dehydration (principal); E10.10 Type 1 diabetes mellitus with ketoacidosis without coma; E10.649 Type 1 diabetes mellitus with hypoglycemia without coma; E03.9 Hypothyroidism, unspecified; K21.9 Gastro-esophageal reflux disease without esophagitis; Z79.4 Long term (current) use of insulin; Z79.890 Hormone replacement therapy
CPT/HCPCS: 36415; 80051; 80053; 82565; 82947; 84100; 84520; 93005; 99285